=== PATIENT | female | born 1965 | race Caucasian/White ===

== ENCOUNTER → 2024-07-07 11:25 | Outpatient (REF) | payer OTHER, SELFPAY | LOC: HWWDC 11:25 | PROVIDERS: ATTENDING PHYSICIAN Family Medicine; REFERRING PHYSICIAN Obstetrics & Gynecology Gynecology | DX: Z12.31 Encounter for screening mammogram for malignant neoplasm of breast (principal) | CPT/HCPCS: 77063; 77067 ==

== ENCOUNTER 2025-01-03 13:02 | Emergency (ER) | payer OTHER, SELFPAY ==
[2025-01-03 13:03] VITALS: BP 136/78
[2025-01-03 13:35] VITALS: BMI 25.2
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
--- NOTE | 2025-01-03 17:46 | EDRN ---
Reviewed discharge instructions with patient. Verbalized understanding. Ambulated with steady gait to the lobby.
[2025-01-03 17:47] VITALS: BP 132/72
== END 2025-01-03 17:48 | disposition home or self-care (01) ==
LOC: EMR 13:02
PROVIDERS: EMERGENCY PHYSICIAN Emergency Medicine; FAMILY PHYSICIAN Family Medicine
DX: S16.1XXA Strain of muscle, fascia and tendon at neck level, initial encounter (principal); V43.52XA Car driver injured in collision with other type car in traffic accident, initial encounter
CPT/HCPCS: 99284; 70450; 72125